=== PATIENT | female | born 1980 | race Caucasian/White ===

== ENCOUNTER 2023-03-24 17:49 | Emergency (ER) | payer SELFPAY ==
[2023-03-24] MEDS ORDERED: Lidocaine 1% 5 ML VIAL INJECT ONE (18:06)
[2023-03-24] MEDS ORDERED: Bupivacaine 0.5% 10 ML SDV INJECT ONE (18:06)
== END 2023-03-24 18:35 | disposition home or self-care (01) ==
LOC: EDBD 17:49 → MW.ED 17:49
DX: K02.9 Dental caries, unspecified (principal)
CPT/HCPCS: 64400; 99282; J3490; 99283